=== PATIENT | female | born 1980 | race Caucasian/White ===

== ENCOUNTER 2016-10-10 05:30 | Inpatient (IN) | payer OTHER ==
[~2016-10-10] VITALS: Ht 162.6 cm; Wt 70.0 kg
[~2016-10-10 05:30] MED LIST: PNV1TABL85 PO
[2016-10-10] MEDS ORDERED: OXYTOCIN 30U/ 0.9% NaCL 500ML 500 ML IV SCH (05:37)
[2016-10-10] MEDS ORDERED: LACTATED RINGERS 1,000 ML IV SCH (05:37)
[2016-10-10] MEDS ORDERED: SODIUM CITRATE/CITRIC ACID 30 ML UDC ONE (05:41)
[2016-10-10] MEDS ORDERED: METOCLOPRAMIDE 5 MG/ML, 2ML ONE ×2 (05:41→11:03)
[2016-10-10] MEDS ORDERED: NEWBORN KIT ONE (05:41)
[2016-10-10 05:58] VITALS: BP 107/75
[2016-10-10] MEDS ORDERED: LACTATED RINGERS 1,000 ML IVBOLUS ONE (06:00)
[2016-10-10] MEDS ORDERED: METOCLOPRAMIDE 5 MG/ML, 2ML IV ONE (06:00)
[2016-10-10] MEDS ORDERED: SODIUM CITRATE/CITRIC ACID 30 ML UDC PO ONE (06:00)
[2016-10-10 06:48] LABS: HEMOGLOBIN 8.5 g/dL (11.7-16.4)
[2016-10-10] MEDS ORDERED: MISOPROSTOL 200 MCG TABLET ONE (07:14)
[2016-10-10] MEDS ORDERED: OXYTOCIN 30U/ 0.9% NaCL 500ML 500 ML ONE (07:14)
[2016-10-10 07:21] LABS: HYPOCHROMIA 1+; MICROCYTOSIS 1+
[2016-10-10 07:22] LABS: POLYCHROMASIA 1+
[2016-10-10] MEDS ORDERED: FENTANYL PF 100 MCG/2ML ONE (07:27)
[2016-10-10] MEDS ORDERED: MEPERIDINE/PF 25MG/0.5ML IVPush PRN (07:30)
[2016-10-10] MEDS ORDERED: HYDROmorphone 1 MG/ML, 1ML IV PRN (07:30)
[2016-10-10] MEDS ORDERED: PROMETHAZINE 25 MG/ML, 1ML IV PRN (07:30)
[2016-10-10] MEDS ORDERED: MIDAZOLAM 1 MG/ML, 2ML IV PRN (07:30)
[2016-10-10] MEDS ORDERED: ALBUTEROL SULFATE 2.5 MG/3 ML NPPB PRN (07:30)
[2016-10-10] MEDS ORDERED: ONDANSETRON 2MG/ML, 2ML IVPush PRN (07:30)
[2016-10-10] MEDS ORDERED: FENTANYL PF 100 MCG/2ML IV PRN (07:30)
[2016-10-10] MEDS ORDERED: EPHEDRINE 50 MG/ML, 1ML IVPush PRN (07:30)
[2016-10-10] MEDS: LACTATED RINGERS 1,000 ML IV SCH ×5 (07:39→23:39)
[2016-10-10] MEDS ORDERED: IBUPROFEN 600 MG TABLET PO PRN (08:00)
[2016-10-10] MEDS ORDERED: SIMETHICONE 80 MG CHEW TAB PO PRN (08:00)
[2016-10-10] MEDS ORDERED: METOCLOPRAMIDE 5 MG/ML, 2ML IV PRN (08:00)
[2016-10-10] MEDS: KETOROLAC 30 MG/1 ML IV SCH ×3 (08:00→20:33)
[2016-10-10] MEDS ORDERED: CALCIUM CARBONATE 500 MG TAB.CHEW PO PRN (08:00)
[2016-10-10] MEDS ORDERED: ONDANSETRON 2MG/ML, 2ML IV PRN (08:00)
[2016-10-10] MEDS ORDERED: BISACODYL 10 MG SUPP PR PRN (08:00)
[2016-10-10] MEDS: PRENATAL VIT/IRON/FA 1 EACH TABLET PO SCH (09:00)
[2016-10-10] MEDS: OXYTOCIN 30U/ 0.9% NaCL 500ML 500 ML IV SCH ×2 (10:22→17:39)
[2016-10-10 10:30] VITALS: BP 96/60
[2016-10-10] MEDS ORDERED: CEFAZOLIN 1,000 MG ONE (11:03)
[2016-10-10] MEDS ORDERED: DEXAMETHASONE 4 MG/ML, 1ML ONE (11:03)
[2016-10-10] MEDS ORDERED: OXYTOCIN 10 UNITS/ML, 1ML ONE (11:03)
[2016-10-10] MEDS ORDERED: KETOROLAC 30 MG/1 ML ONE (11:03)
[2016-10-10] MEDS ORDERED: ONDANSETRON 2MG/ML, 2ML ONE (11:03)
[2016-10-10 16:00] VITALS: BP 109/73
[2016-10-10 16:19] LABS: HEMOGLOBIN 9.4 g/dL (11.7-16.4)
[2016-10-10 16:48] LABS: ANISOCYTOSIS 3+; HYPOCHROMIA 1+; MICROCYTOSIS 2+; POLYCHROMASIA 1+
[2016-10-10 16:49] LABS: OVALOCYTES 1+
[2016-10-10 19:45] VITALS: BP 103/68
[2016-10-11 00:16] VITALS: BP 99/66
[2016-10-11] MEDS: KETOROLAC 30 MG/1 ML IV SCH ×4 (02:22→20:34)
[2016-10-11] MEDS: OXYTOCIN 30U/ 0.9% NaCL 500ML 500 ML IV SCH ×3 (03:39→23:39)
[2016-10-11] MEDS: LACTATED RINGERS 1,000 ML IV SCH ×6 (03:39→23:39)
[2016-10-11 04:15] VITALS: BP 92/60
[2016-10-11 08:10] VITALS: BP 98/60
[2016-10-11] MEDS: PRENATAL VIT/IRON/FA 1 EACH TABLET PO SCH (09:00)
[2016-10-11 12:00] VITALS: BP 100/60
[2016-10-11] MEDS: SERTRALINE 50MG TABLET PO SCH (13:55)
[2016-10-11] MEDS ORDERED: TIZANIDINE 4MG TABLET PO PRN (14:00)
[2016-10-11 16:00] VITALS: BP 102/64
[2016-10-11 20:30] VITALS: BP 113/73
[2016-10-11] MEDS: DOCUSATE 100 MG CAPSULE PO PRN (20:34)
[2016-10-12] MEDS: KETOROLAC 30 MG/1 ML IV SCH (02:47)
[2016-10-12] MEDS: LACTATED RINGERS 1,000 ML IV SCH ×5 (07:39→23:39)
[2016-10-12 07:58] VITALS: BP 99/60
[2016-10-12] MEDS ORDERED: KETOROLAC 30 MG/1 ML ONE ×2 (08:40→15:37)
[2016-10-12] MEDS: SERTRALINE 50MG TABLET PO SCH (08:45)
[2016-10-12] MEDS: DOCUSATE 100 MG CAPSULE PO PRN ×2 (08:45→22:14)
[2016-10-12] MEDS: PRENATAL VIT/IRON/FA 1 EACH TABLET PO SCH (08:45)
[2016-10-12] MEDS: OXYTOCIN 30U/ 0.9% NaCL 500ML 500 ML IV SCH ×2 (09:39→19:39)
[2016-10-12] MEDS ORDERED: DOCU-30 PO (11:06)
[2016-10-12] MEDS ORDERED: IBUP800T PO (11:07)
[2016-10-12] MEDS ORDERED: OXYC-302 PO (11:09)
[2016-10-12 20:00] VITALS: BP 119/81
[2016-10-12] MEDS ORDERED: ONDANSETRON ODT 4 MG PO PRN (23:00)
[2016-10-13] MEDS: LACTATED RINGERS 1,000 ML IV SCH ×2 (05:39→07:39)
[2016-10-13] MEDS: OXYTOCIN 30U/ 0.9% NaCL 500ML 500 ML IV SCH (05:39)
[2016-10-13 07:15] VITALS: BP 108/71
[2016-10-13] MEDS: PRENATAL VIT/IRON/FA 1 EACH TABLET PO SCH (08:27)
[2016-10-13] MEDS: DOCUSATE 100 MG CAPSULE PO PRN (08:28)
[2016-10-13] MEDS: SERTRALINE 50MG TABLET PO SCH (08:28)
[2016-10-13] MEDS ORDERED: TRAM50TA2 PO (10:02)
[2016-10-13] MEDS ORDERED: ALPR-475 PO (10:02)
[2016-10-13] MEDS ORDERED: SERT50TA PO (10:04)
[2016-10-13 13:06] LABS: HGB A 97.8 % (94.0-98.0); HGB A2 2.2 % (0.7-3.1)
== END 2016-10-13 15:08 | disposition home or self-care (01) | DRG 765 ==
LOC: LDIP 05:30 → 2NW 10:28
PROVIDERS: ADMIT Student in an Organized Health Care Education/Training Program; ATTEND Student in an Organized Health Care Education/Training Program
PROC: 10D00Z1 Extraction of Products of Conception, Low, Open Approach (ICD-10-PCS; principal; 2016-10-10)
DX: O34.211 Maternal care for low transverse scar from previous cesarean delivery (principal); O99.12 Other diseases of the blood and blood-forming organs and certain disorders involving the immune mechanism complicating childbirth; D68.51 Activated protein C resistance; O99.02 Anemia complicating childbirth; D64.9 Anemia, unspecified; O69.81X0 Labor and delivery complicated by cord around neck, without compression, not applicable or unspecified; O99.844 Bariatric surgery status complicating childbirth; Z82.61 Family history of arthritis; Z3A.39 39 weeks gestation of pregnancy; Z37.0 Single live birth; Z83.3 Family history of diabetes mellitus; Z88.5 Allergy status to narcotic agent; Z88.7 Allergy status to serum and vaccine; Z88.8 Allergy status to other drugs, medicaments and biological substances; Z88.6 Allergy status to analgesic agent; Z91.040 Latex allergy status; O09.523 Supervision of elderly multigravida, third trimester
CPT/HCPCS: 36415; 83021; 85025; 85660; 86850; 86900; 86923; J0690; J1100; J1885; J2405; J3010; Q0162; J2590; J2765; J7120

== ENCOUNTER 2017-06-12 09:54 | Emergency (ER) | payer MEDICAID, OTHER ==
[~2017-06-12] VITALS: Ht 162.6 cm; Wt 62.3 kg
[~2017-06-12 09:54] MED LIST changes: +ALPR-475 PO; +DOCU-131 PO; +IBUP-1223 PO; +OXYC-302 PO; +SERT50TA PO; +TRAM50TA2 PO
[2017-06-12 09:57] VITALS: BP 117/84
[2017-06-12] MEDS ORDERED: KETOROLAC 30 MG/1 ML IM ONE (10:30)
[2017-06-12] MEDS ORDERED: KETOROLAC 30 MG/1 ML ONE (10:47)
== END 2017-06-12 11:42 | disposition home or self-care (01) ==
LOC: ED 11:36
DX: S80.01XA Contusion of right knee, initial encounter (principal); X50.1XXA Overexertion from prolonged static or awkward postures, initial encounter; Y93.89 Activity, other specified; Y92.009 Unspecified place in unspecified non-institutional (private) residence as the place of occurrence of the external cause; Y99.9 Unspecified external cause status
CPT/HCPCS: 73564; 96372; 99284; J1885

== ENCOUNTER 2017-06-20 18:01 | Emergency (ER) | payer MEDICAID, OTHER ==
[~2017-06-20] VITALS: Ht 162.6 cm; Wt 66.2 kg
[2017-06-20] MEDS ORDERED: SUMA25TA4 PO (19:08)
[2017-06-20 20:56] VITALS: BP 107/73
== END 2017-06-20 20:59 | disposition home or self-care (01) ==
LOC: ED 19:51
DX: M79.661 Pain in right lower leg (principal); Z88.8 Allergy status to other drugs, medicaments and biological substances; Z88.6 Allergy status to analgesic agent
CPT/HCPCS: 99284

== ENCOUNTER 2017-09-10 22:49 | Emergency (ER) | payer MEDICAID, OTHER ==
[~2017-09-10] VITALS: Ht 162.6 cm; Wt 64.1 kg
[~2017-09-10 22:49] MED LIST changes: +SUMA25TA4 PO
[2017-09-10 23:03] VITALS: BP 131/90
== END 2017-09-11 00:22 | disposition home or self-care (01) ==
LOC: ED 23:21
DX: M25.461 Effusion, right knee (principal)
CPT/HCPCS: 99281

== ENCOUNTER 2017-12-22 14:44 | Inpatient (IN) | payer MEDICAID, OTHER ==
[~2017-12-22] VITALS: Ht 162.6 cm; Wt 65.2 kg
[2017-12-22] MEDS ORDERED: SODIUM CHLORIDE FLUSH 10ML SYR IVF ONE (15:30)
[2017-12-22] MEDS ORDERED: ACETAMINOPHEN 500 MG TABLET PO ONE ×2 (15:30→17:30)
[2017-12-22] MEDS ORDERED: SODIUM CHLORIDE 0.9% 1,000ML IVBOLUS ONE (15:30)
[2017-12-22] MEDS ORDERED: MORPHINE SULFATE 4 MG/ML, 1ML ONE ×2 (15:58→17:30)
[2017-12-22 16:00] LABS: BASOPHILS # (AUTO) 0.03 x10^3/uL (0-0.1); BASOPHILS % (AUTO) 0 % (0-1); EOSINOPHILS # (AUTO) 0.01 x10^3/uL (0-0.4); EOSINOPHILS % (AUTO) 0 % (1-7); HCT (SEDRATE) 38.1 % (34.6-47.8); LYMPHOCYTES # (AUTO) 1.58 x10^3/uL (1-3.4); LYMPHOCYTES % (AUTO) 17 % (22-44); MD NO; MEAN CORPUSCULAR HEMOGLOBIN 28.4 pg (27.0-34.8); MEAN CORPUSCULAR HGB CONC 33.5 g/dL (32.4-35.8); MEAN CORPUSCULAR VOLUME 84.8 fL (80-100); MEAN PLATELET VOLUME 8.7 fL (7.4-10.4); MONOCYTES # (AUTO) 0.86 x10^3/uL (0.2-0.8); MONOCYTES % (AUTO) 9 % (2-9); NEUTROPHILS # (AUTO) 7.01 x10^3/uL (1.8-6.8); NEUTROPHILS % (AUTO) 74 % (42-75); PLATELET COUNT 432 x10^3/uL (130-400); RED BLOOD COUNT 4.49 x10^6/uL (3.82-5.3); RED CELL DISTRIBUTION WIDTH 14.5 % (9.6-15.2)
[2017-12-22] MEDS: MORPHINE SULFATE 4 MG/ML, 1ML IVPush PRN ×2 (16:09→17:44)
[2017-12-22 16:10] LABS: ALANINE AMINOTRANSFERASE 18 U/L (12-78); ALBUMIN 3.6 g/dL (3.4-5.0); ANION GAP 8 mmol/L (5-15); CALCIUM 8.5 mg/dL (8.5-10.1); CHLORIDE 102 mmol/L (98-107); CREATININE 0.63 mg/dL (0.55-1.02)
[2017-12-22 16:23] LABS: ALKALINE PHOSPHATASE 97 U/L (45-117); BILIRUBIN,TOTAL 0.5 mg/dL (0.2-1.0); TOTAL PROTEIN 8.5 g/dL (6.4-8.2)
[2017-12-22] MEDS ORDERED: LIDOCAINE-MPF 1%, 2ML ONE (16:58)
[2017-12-22] MEDS ORDERED: ONDANSETRON ODT 4 MG ONE (17:01)
[2017-12-22] MEDS ORDERED: MAALOX/HYOSCYAMINE/LIDOCAINE 45 ML BTL ONE (17:02)
[2017-12-22 17:29] LABS: SEDIMENTATION RATE 89 mm/hr (0-20)
[2017-12-22] MEDS ORDERED: CEFTRIAXONE PMX 1GM/50ML 50 ML ONE (17:29)
[2017-12-22] MEDS ORDERED: MAALOX/HYOSCYAMINE/LIDOCAINE 45 ML BTL PO ONE (17:30)
[2017-12-22] MEDS ORDERED: CEFTRIAXONE PMX 1GM/50ML 50 ML IV ONE (17:30)
[2017-12-22] MEDS ORDERED: ONDANSETRON ODT 4 MG PO ONE (17:30)
[2017-12-22] MEDS ORDERED: MORPHINE SULFATE 4 MG/ML, 1ML IVPush PRN (23:30)
[2017-12-23 00:21] VITALS: BP 94/64
[2017-12-23] MEDS ORDERED: BISACODYL 10 MG SUPP PR PRN (00:30)
[2017-12-23] MEDS ORDERED: morphine SULFATE 10 MG/ML, 1ML IVPush PRN (00:30)
[2017-12-23] MEDS ORDERED: POLYETHYLENE GLYCOL 17 GM PACKET PO PRN (00:30)
[2017-12-23] MEDS ORDERED: hydrALAzine 20 MG/ML, 1ML IVPush PRN (00:30)
[2017-12-23] MEDS ORDERED: ONDANSETRON 2MG/ML, 2ML IVPush PRN (00:30)
[2017-12-23] MEDS ORDERED: DOCUSATE 100 MG CAPSULE PO PRN (00:30)
[2017-12-23] MEDS ORDERED: ACETAMINOPHEN 325 MG TABLET PO PRN (00:30)
[2017-12-23] MEDS ORDERED: PROMETHAZINE 25 MG/ML, 1ML IM PRN (00:30)
[2017-12-23] MEDS ORDERED: POTASSIUM CHLORIDE 20 MEQ TAB.ER.PRT PO ONE (01:00)
[2017-12-23] MEDS ORDERED: PHARMACOKINETIC MONITORING MC PRN (01:00)
[2017-12-23] MEDS ORDERED: VANCOMYCIN PER PHARMACY MC PRN (01:00)
[2017-12-23] MEDS ORDERED: PHARMACOKINETIC CONSULTATION MC ONE (01:00)
[2017-12-23] MEDS ORDERED: VANCOMYCIN PMX 1GM/200ML 200 ML IV ONE (01:00)
[2017-12-23] MEDS: VANCOMYCIN 1,300 MG in SODIUM CHLORIDE 0.9% 250 ML IV SCH ×2 (01:00→02:37)
[2017-12-23] MEDS: CEFTRIAXONE PMX 1GM/50ML 50 ML IV SCH (01:52)
[2017-12-23] MEDS: SODIUM CHLORIDE 0.9% 1,000 ML IV SCH ×2 (01:52→13:00)
[2017-12-23 02:38] LABS: FREE T4 (FREE THYROXINE) 0.92 ng/dL (0.76-1.46)
[2017-12-23 02:46] LABS: THYROID STIMULATING HORMONE 0.331 mIU/L (0.358-3.740)
[2017-12-23 02:51] LABS: HEMOGLOBIN A1C 5.9 % (4.2-6.3)
[2017-12-23] MEDS ORDERED: DIPHENHYDRAMINE 50 MG/ML, 1ML IVPush PRN (03:30)
[2017-12-23] MEDS ORDERED: IMIPRAMINE 25 MG TABLET PO PRN (03:30)
[2017-12-23 05:42] LABS: BASOPHILS # (AUTO) 0.01 x10^3/uL (0-0.1); BASOPHILS % (AUTO) 0 % (0-1); EOSINOPHILS # (AUTO) 0.02 x10^3/uL (0-0.4); EOSINOPHILS % (AUTO) 0 % (1-7); LYMPHOCYTES # (AUTO) 1.38 x10^3/uL (1-3.4); LYMPHOCYTES % (AUTO) 20 % (22-44); MD NO; MEAN CORPUSCULAR HEMOGLOBIN 28.2 pg (27.0-34.8); MEAN CORPUSCULAR VOLUME 85.5 fL (80-100); MEAN PLATELET VOLUME 8.5 fL (7.4-10.4); MONOCYTES # (AUTO) 0.67 x10^3/uL (0.2-0.8); MONOCYTES % (AUTO) 10 % (2-9); NEUTROPHILS # (AUTO) 4.77 x10^3/uL (1.8-6.8); NEUTROPHILS % (AUTO) 70 % (42-75); PLATELET COUNT 357 x10^3/uL (130-400); RED BLOOD COUNT 4.14 x10^6/uL (3.82-5.3); RED CELL DISTRIBUTION WIDTH 14.6 % (9.6-15.2)
[2017-12-23 05:55] LABS: ALBUMIN 2.9 g/dL (3.4-5.0); ANION GAP 7 mmol/L (5-15); CALCIUM 8.6 mg/dL (8.5-10.1); CHLORIDE 107 mmol/L (98-107)
[2017-12-23 05:59] LABS: ALANINE AMINOTRANSFERASE 104 U/L (12-78); ALKALINE PHOSPHATASE 92 U/L (45-117); BILIRUBIN,TOTAL 0.4 mg/dL (0.2-1.0); CREATININE 0.48 mg/dL (0.55-1.02); TOTAL PROTEIN 7.3 g/dL (6.4-8.2)
[2017-12-23 08:00] VITALS: BP 103/69
[2017-12-23] MEDS ORDERED: SUMATRIPTAN 25 MG TABLET PO PRN (08:30)
[2017-12-23] MEDS: SENNA/DOCUSATE TABLET PO SCH (08:30)
[2017-12-23] MEDS: SERTRALINE 50MG TABLET PO SCH (08:31)
[2017-12-23 14:00] VITALS: BP 112/73
[2017-12-23 19:36] VITALS: BP 104/71
[2017-12-23] MEDS: KETOROLAC 30 MG/1 ML IVPush PRN (21:09)
[2017-12-24 00:28] VITALS: BP 100/65
[2017-12-24] MEDS: DIPHENHYDRAMINE 25 MG CAPSULE PO PRN (01:08)
[2017-12-24] MEDS: CEFTRIAXONE PMX 1GM/50ML 50 ML IV SCH (01:08)
[2017-12-24] MEDS: KETOROLAC 30 MG/1 ML IVPush PRN ×4 (04:04→23:40)
[2017-12-24 04:45] LABS: MICROSCOPIC NOT IND
[2017-12-24 04:47] LABS: CULTURE INDICATED? NO
[2017-12-24 05:46] LABS: CHOL/HDL RATIO 3.9; LDL/HDL RATIO 2.3 (0.5-3.0)
[2017-12-24 07:39] VITALS: BP 100/65
[2017-12-24] MEDS: SENNA/DOCUSATE TABLET PO SCH (08:28)
[2017-12-24] MEDS: SERTRALINE 50MG TABLET PO SCH (08:33)
[2017-12-24] MEDS: ONDANSETRON ODT 4 MG PO PRN ×3 (12:27→21:44)
[2017-12-24 14:35] VITALS: BP 114/71
[2017-12-24 19:22] VITALS: BP 114/79
[2017-12-25 03:58] VITALS: BP 105/68
[2017-12-25] MEDS: ONDANSETRON ODT 4 MG PO PRN ×5 (05:23→23:50)
[2017-12-25 07:17] VITALS: BP_SYST 139; BP_SYST 95; BP_DIAS 62; BP_DIAS 74
[2017-12-25] MEDS: KETOROLAC 30 MG/1 ML IVPush PRN ×3 (07:43→21:49)
[2017-12-25] MEDS: SERTRALINE 50MG TABLET PO SCH (07:43)
[2017-12-25] MEDS: SENNA/DOCUSATE TABLET PO SCH (07:44)
[2017-12-25 19:50] VITALS: BP 131/87
[2017-12-25] MEDS: DIPHENHYDRAMINE 25 MG CAPSULE PO PRN (21:42)
[2017-12-26 01:44] VITALS: BP 114/74
[2017-12-26] MEDS: KETOROLAC 30 MG/1 ML IVPush PRN ×2 (04:26→10:30)
[2017-12-26] MEDS: ONDANSETRON ODT 4 MG PO PRN (05:15)
[2017-12-26] MEDS: SENNA/DOCUSATE TABLET PO SCH (08:52)
[2017-12-26] MEDS: SERTRALINE 50MG TABLET PO SCH (09:00)
[2017-12-26 09:04] VITALS: BP 106/73
[2017-12-26 14:50] VITALS: BP 103/68
[2017-12-26] MEDS ORDERED: FENTANYL PF 100 MCG/2ML ONE ×2 (15:53→18:07)
[2017-12-26] MEDS ORDERED: MIDAZOLAM 1 MG/ML, 2ML ONE (15:54)
[2017-12-26] MEDS ORDERED: LIDOCAINE/PF 0.5% ,50ML ONE (16:09)
[2017-12-26] MEDS ORDERED: ROPIvacaine/PF 0.5%, 30 ML ONE (16:09)
[2017-12-26] MEDS ORDERED: BUPIVACAINE/PF 0.25% ONE (16:09)
[2017-12-26] MEDS ORDERED: EPINEPHRINE 1 MG/ML, 1ML ONE (16:09)
[2017-12-26] MEDS ORDERED: DEXAMETHASONE 4 MG/ML, 1ML ONE (17:01)
[2017-12-26] MEDS ORDERED: PROPOFOL 10 MG/ML, 20ML ONE (17:01)
[2017-12-26] MEDS ORDERED: CEFAZOLIN 1,000 MG ONE (17:01)
[2017-12-26] MEDS ORDERED: ONDANSETRON 2MG/ML, 2ML ONE (17:01)
[2017-12-26] MEDS ORDERED: ACETAMINOPHEN 325 MG TABLET PO PRN (17:30)
[2017-12-26] MEDS ORDERED: HYDROmorphone 1 MG/ML, 1ML IV PRN (17:30)
[2017-12-26] MEDS ORDERED: PROMETHAZINE 25 MG/ML, 1ML IV PRN (17:30)
[2017-12-26] MEDS ORDERED: LORazepam 2 MG/ML, 1ML IVPush PRN (17:30)
[2017-12-26] MEDS ORDERED: ALBUTEROL SULFATE 2.5 MG/3 ML NPPB PRN (17:30)
[2017-12-26] MEDS ORDERED: OXYcodone 5 MG/5 ML ORAL.SOL UDC PO PRN (17:30)
[2017-12-26] MEDS ORDERED: hydrALAzine 20 MG/ML, 1ML IV PRN (17:30)
[2017-12-26] MEDS ORDERED: MEPERIDINE/PF 25MG/0.5ML IVPush PRN (17:30)
[2017-12-26] MEDS ORDERED: LABETALOL 5MG/ML, 20ML IV PRN (17:30)
[2017-12-26] MEDS ORDERED: OXYcodone 5 MG/5 ML ORAL.SOL UDC ONE (18:07)
[2017-12-26] MEDS: FENTANYL PF 100 MCG/2ML IV PRN ×2 (18:10→18:27)
[2017-12-26] MEDS ORDERED: PROMETHAZINE 25 MG/ML, 1ML ONE (18:20)
[2017-12-26 19:24] VITALS: BP 130/83
[2017-12-26] MEDS ORDERED: SERTRALINE 50MG TABLET PO SCH (21:00)
[2017-12-27 01:41] VITALS: BP 109/70
[2017-12-27] MEDS: MORPHINE SULFATE 4 MG/ML, 1ML IVPush PRN ×3 (01:41→12:02)
[2017-12-27] MEDS: SENNA/DOCUSATE TABLET PO SCH (07:29)
[2017-12-27 08:35] VITALS: BP 106/69
[2017-12-27 14:00] VITALS: BP 111/71
== END 2017-12-27 15:38 | disposition home or self-care (01) | DRG 854 ==
LOC: ED 17:19 → EDIP 17:24 → 3NE 18:45
PROVIDERS: ADMIT Hospitalist; ATTEND Hospitalist
PROC: 0SBC4ZZ Excision of Right Knee Joint, Percutaneous Endoscopic Approach (ICD-10-PCS; principal; 2017-12-26 17:00)
DX: A41.9 Sepsis, unspecified organism (principal); M00.9 Pyogenic arthritis, unspecified; E87.1 Hypo-osmolality and hyponatremia; M25.461 Effusion, right knee; E87.6 Hypokalemia; F32.9 Major depressive disorder, single episode, unspecified; F41.9 Anxiety disorder, unspecified; G43.909 Migraine, unspecified, not intractable, without status migrainosus; M65.861 Other synovitis and tenosynovitis, right lower leg; S83.281A Other tear of lateral meniscus, current injury, right knee, initial encounter; X58.XXXA Exposure to other specified factors, initial encounter; M94.261 Chondromalacia, right knee; Y93.89 Activity, other specified; T50.995A Adverse effect of other drugs, medicaments and biological substances, initial encounter; M13.861 Other specified arthritis, right knee; Y92.89 Other specified places as the place of occurrence of the external cause; Y99.8 Other external cause status; Z80.8 Family history of malignant neoplasm of other organs or systems; Z83.3 Family history of diabetes mellitus; Z90.3 Acquired absence of stomach [part of]; Z98.84 Bariatric surgery status; Z90.49 Acquired absence of other specified parts of digestive tract; Z79.899 Other long term (current) drug therapy; Z88.8 Allergy status to other drugs, medicaments and biological substances
CPT/HCPCS: 20610; 36415; 80053; 80061; 81003; 83036; 83605; 83735; 84145; 84439; 84443; 84560; 84702; 84703; 85025; 85651; 86140; 86141; 87015; 87040; 87070; 87075; 87102; 87116; 87205; 87206; 87252; 89051; 89060; 93005; 96361; 96374; 96376; J0171; J0690; J0696; J1100; J1885; J2001; J2250; J2405; J2550; J2704; J2795; J3010; J3370; J3490; Q0162; J1200; J7030; J7050; Q0163